=== PATIENT | female | born 1975 | race Two or more races ===

== ENCOUNTER 2024-10-17 17:44 | Inpatient (IN) | payer OTHER ==
[~2024-10-17] VITALS: Ht 172.7 cm; Wt 113.4 kg
--- NOTE | 2024-10-17 18:34 | NUR ---
PACIENTE ALERTA Y ORIENTADA X 3, REFIERE DESDE EL NO SIENTE EL LADO IZQ DEL CUERPO Y TIENE DIFICULTAD PARA HABLAR.
[2024-10-17] MEDS ORDERED: DIOVAN160 M1 PO (18:36)
[2024-10-17] MEDS ORDERED: METFORMIN HCL1000 M2 (18:36)
[2024-10-17] MEDS ORDERED: GLYXAMBI 25 MG1 EACH PO (18:37)
[2024-10-17] MEDS ORDERED: GUSELKUMAB SQ (18:38)
--- NOTE | 2024-10-17 19:18 | NUR ---
SE NOTIFICA CT.
[2024-10-17 20:14] LABS: BASO % 0.4 % (0.1-1.2); EOS # 0.08 (0.04-0.54); EOS % 1.0 % (0.7-7.0); LYMPH # 2.58 (1.18-3.74); LYMPH % 32.7 % (19.3-53.1); MEAN PLATELET VOLUME 9.60 fl (9.4-12.4); MONO # 0.48 (0.24-0.82); MONO % 6.1 % (4.7-12.5); NEUT # 4.69 (1.56-6.13); NEUT % 59.5 % (34.0-71.1); RED CELL DISTRIBUTION WIDTH 14.3 % (11.6-14.4)
[2024-10-17 20:44] LABS: COVID-19 AG NEGATIVE (NEGATIVE)
[2024-10-17 20:48] LABS: ALT/SGPT 25.0 U/L (12-78); AST/SGOT 17.0 U/L (15-37); BILIRUBIN TOTAL 0.63 mg/dL (0.3-1.2); BUN CREA RATIO 29.0 (7.0-25.0); CREATININE SERUM 0.7 mg/dL (0.55-1.02); GFR 88.57; GLOBULINA 3.4 G/DL (2.4-3.5); GLUCOSE FASTING 120.0 mg/dL (65-100); OSMOLALITY SERUM 285.0 MOSM/KG (275-295)
[2024-10-17 21:21] LABS: URINE APPEARANCE Clear; URINE BACTERIA 157.1 uL (0.0-1933); URINE BILIRRUBIN Negative (NEGATIVE); URINE BLOOD Small; URINE COLOR Yellow; URINE EPITHELIAL CELLS 10.7 uL (0.0-38.8); URINE KETONE Trace (NEGATIVE); URINE LEUKOCYTE Negative; URINE NITRATE Negative; URINE PROTEIN Negative (NEGATIVE); URINE RBC 7.3 uL (0.0-20.8); URINE UROBILINOGEN 0.2 E.U./dl; URINE WBC 4.1 uL (0.0-23.2)
[2024-10-17 21:25] LABS: URINE CAST 0.58 uL (0.0-1.40); URINE GLUCOSE >=1000 MG/DL (NEGATIVE)
[2024-10-17] MEDS ORDERED: 0.9 % SODIUM CHLORIDE 1,000 ML IV SCH (23:00)
[2024-10-17] MEDS ORDERED: ATORVASTATIN CALCIUM 40 MG TABLET PO SCH (23:08)
[2024-10-17] MEDS ORDERED: ACETAMINOPHEN 500 MG GEL..CAP PO PRN (23:15)
[2024-10-17] MEDS ORDERED: INSULIN LISPRO 1,000 UNIT/10 ML UNITS SUBCUTANEO PRN (23:15)
[2024-10-17] MEDS ORDERED: DEXTROSE 50 % IN WATER 0.5 G/ML DISP.SYRIN IV PRN (23:15)
[2024-10-17] MEDS ORDERED: ASPIRIN 81 MG TAB.CHEW PO ONE (23:15)
[2024-10-18 00:54] LABS: INR 1.05
[2024-10-18 01:01] VITALS: BP 150/80; O2SAT 98
[2024-10-18 01:06] LABS: CHOL HDL RATIO 3.5 (0-5.0); HDL 36.0 mg/dl (40-60); LDL 66.0 mg/dl (0-130); TSH 0.989 uIU/mL (0.358-3.74); VLDL 23.0 (0-39)
[2024-10-18] MEDS ORDERED: FAMOTIDINE/PF 20 MG in 0.9 % SODIUM CHLORIDE 8 ML IV PUSH SCH (09:00)
[2024-10-18] MEDS ORDERED: LOSARTAN POTASSIUM 50 MG TABLET PO SCH (09:00)
[2024-10-18] MEDS ORDERED: LORazepam 2 MG/ML VIAL IV NR (09:15)
[2024-10-18] MEDS ORDERED: METHYLPREDNISOLONE SOD SUCC 500 MG VIAL IV SCH (17:00)
[2024-10-18 17:30] VITALS: BP 157/82; O2SAT 98
[2024-10-19] VITALS (8 sets, daily range): BP systolic 165–188; BP diastolic 73–96; O2SAT 95–96
[2024-10-19] MEDS ORDERED: hydrALAZINE HCL 20 MG VIAL IV STA (01:21)
[2024-10-19] MEDS ORDERED: hydrALAZINE HCL 20 MG VIAL IV PRN (01:30)
[2024-10-19] MEDS ORDERED: SODIUM CHLORIDE 0.45 % 1,000 ML IV SCH (07:00)
[2024-10-19] MEDS ORDERED: INSULIN LISPRO 1,000 UNIT/10 ML UNITS SUBCUTANEO STA (08:12)
[2024-10-19] MEDS ORDERED: LOSARTAN POTASSIUM 100 MG TABLET PO SCH (09:00)
[2024-10-19] MEDS ORDERED: hydrALAZINE HCL 20 MG VIAL IV SCH (12:00)
[2024-10-19] MEDS ORDERED: INSULIN GLARGINE,HUM.REC.ANLOG 1,000 UNITS/10 ML UNITS SUBCUTANEO SCH (17:00)
[2024-10-19] MEDS ORDERED: METHYLPREDNISOLONE SOD SUCC 125 MG VIAL ONE (17:51)
[2024-10-19] MEDS ORDERED: PANTOPRAZOLE SODIUM 40 MG TABLET.DR PO SCH (21:00)
[2024-10-20] VITALS (8 sets, daily range): BP systolic 154–170; BP diastolic 63–82; O2SAT 94–97
[2024-10-20] MEDS ORDERED: INSULIN LISPRO 1,000 UNIT/10 ML UNITS SUBCUTANEO SCH (08:00)
[2024-10-20] MEDS ORDERED: ASPIRIN 81 MG TAB.CHEW PO NR (10:00)
[2024-10-20] MEDS ORDERED: CLOPIDOGREL BISULFATE 75 MG TABLET PO NR (10:00)
[2024-10-20] MEDS ORDERED: LORazepam 2 MG/ML VIAL IV STA (10:54)
[2024-10-20] MEDS ORDERED: POLYETHYLENE GLYCOL 3350 17 GM BLIST.PACK PO SCH (17:00)
[2024-10-20] MEDS ORDERED: METHYLPREDNISOLONE SOD SUCC 125 MG VIAL ONE (18:45)
[2024-10-21] VITALS (9 sets, daily range): BP systolic 120–164; BP diastolic 73–79; O2SAT 90–98
[2024-10-21] MEDS ORDERED: ASPIRIN 81 MG TAB.CHEW PO SCH (09:00)
[2024-10-21] MEDS ORDERED: CLOPIDOGREL BISULFATE 75 MG TABLET PO SCH (09:00)
[2024-10-21] MEDS ORDERED: DIPHENHYDRAMINE HCL 50 MG/ML VIAL 1ML IM STA (13:46)
[2024-10-21] MEDS ORDERED: METHYLPREDNISOLONE SOD SUCC 40 MG VIAL IV STA (13:46)
[2024-10-21] MEDS ORDERED: DIPHENHYDRAMINE HCL 50 MG/ML VIAL 1ML ONE (13:48)
[2024-10-21] MEDS ORDERED: METHYLPREDNISOLONE SOD SUCC 40 MG VIAL ONE (13:49)
[2024-10-21] MEDS ORDERED: PREDNISONE 20 MG TABLET PO SCH (17:00)
[2024-10-22] VITALS (10 sets, daily range): BP systolic 140–176; BP diastolic 73–80; O2SAT 92–96
[2024-10-22] MEDS ORDERED: LOSARTAN/HYDROCHLOROTHIAZIDE 1 TAB TABLET PO NR (13:40)
[2024-10-22] MEDS ORDERED: METOPROLOL SUCCINATE 50 MG TAB.SR.24H PO NR (13:40)
[2024-10-22] MEDS ORDERED: AMLODIPINE BESYLATE 5 MG TABLET PO SCH (17:00)
[2024-10-23] VITALS (8 sets, daily range): BP systolic 125–151; BP diastolic 70–78; O2SAT 93–97
[2024-10-23] MEDS ORDERED: METOPROLOL SUCCINATE 50 MG TAB.SR.24H PO SCH (09:00)
[2024-10-23] MEDS ORDERED: LOSARTAN/HYDROCHLOROTHIAZIDE 1 TAB TABLET PO SCH (09:00)
[2024-10-23 13:58] LABS: BASO % 0.1 % (0.1-1.2); EOS # 0.04 (0.04-0.54); EOS % 0.3 % (0.7-7.0); LYMPH # 1.48 (1.18-3.74); LYMPH % 9.8 % (19.3-53.1); MEAN PLATELET VOLUME 10.00 fl (9.4-12.4); MONO # 0.53 (0.24-0.82); MONO % 3.5 % (4.7-12.5); NEUT # 13.01 (1.56-6.13); NEUT % 85.8 % (34.0-71.1); RED CELL DISTRIBUTION WIDTH 14.5 % (11.6-14.4)
[2024-10-23 14:25] LABS: ALT/SGPT 37.0 U/L (12-78); AST/SGOT 20.0 U/L (15-37); BILIRUBIN TOTAL 1.03 mg/dL (0.3-1.2); BUN CREA RATIO 33.0 (7.0-25.0); CREATININE SERUM 0.69 mg/dL (0.55-1.02); GFR 90.05; GLOBULINA 3.1 G/DL (2.4-3.5); GLUCOSE FASTING 180.0 mg/dL (65-100); OSMOLALITY SERUM 286.0 MOSM/KG (275-295)
[2024-10-24] VITALS (8 sets, daily range): BP systolic 147–160; BP diastolic 81–86; O2SAT 95–98
[2024-10-24] MEDS ORDERED: INSULIN NPH HUM/REG INSULIN HM 1,000 UNIT/10 ML UNITS SUBCUTANEO SCH (08:00)
[2024-10-25 01:23] VITALS: O2SAT 90
[2024-10-25 01:36] VITALS: BP 160/80; O2SAT 97
[2024-10-25 05:34] VITALS: O2SAT 90
[2024-10-25] MEDS ORDERED: INSULIN NPH HUM/REG INSULIN HM 1,000 UNIT/10 ML UNITS SUBCUTANEO SCH ×2 (08:00→12:00)
[2024-10-25 08:23] VITALS: BP 170/70; O2SAT 96
[2024-10-25] MEDS ORDERED: AMLODIPINE BESYLATE 5 MG TABLET PO SCH (09:00)
[2024-10-25] MEDS ORDERED: METOPROLOL SUCCINATE 100 MG TAB.SR.24H PO SCH (09:00)
[2024-10-25 10:27] VITALS: O2SAT 97
[2024-10-25] MEDS ORDERED: CLOPIDOGREL BIS75 MG PO (10:46)
[2024-10-25] MEDS ORDERED: AMLODIPINE BESYL5 MG PO (10:47)
[2024-10-25] MEDS ORDERED: ADULT ASPIRIN81 MG PO (10:48)
[2024-10-25] MEDS ORDERED: TOPROL XL100 M1 PO (10:48)
[2024-10-25] MEDS ORDERED: LIPITOR40 M1 PO (10:48)
[2024-10-25] MEDS ORDERED: PANTOPRAZOLE SO40 MG PO (10:49)
[2024-10-25] MEDS ORDERED: PREDNISONE20 MG PO (10:50)
[2024-10-25] MEDS ORDERED: DIOVAN320 MG PO (10:51)
[2024-10-25] MEDS ORDERED: GLYXAMBI 25 MG1 EACH PO (10:52)
[2024-10-25 13:08] LABS: ANTI JO 1 < 0.2 AI (0.0-0.9); ANTI-CENTROMERE AB <0.2 AI (0.0-0.9); DNA AB DOUBLE STRABDED < 1 IU/mL (0-9)
[2024-10-25 15:08] LABS: ANTI CARDIO IGM < 9 MPL U/mL (0-12)
[2024-10-25 16:49] VITALS: BP 189/79; O2SAT 98
[2024-10-26 09:11] LABS: PROTEIN C ANTIGEN 93 % (60-150)
[2024-10-27 13:08] LABS: ANTI-THROMBIN III 116 % (75-135); VON WILLERBRAND ANTIGEN 167 % (50-200)
[2024-10-27 15:12] LABS: ANTI MITOCHONDRIAL ANTIBODIES < 20.0 Units (0.0-20.0); SMOOTH MUSCLE ANTIBODY 6 Units (0-19)
[2024-10-27 17:08] LABS: anti MPO AB < 0.2 units (0.0-0.9); anti pr3 < 0.2 units (0.0-0.9)
== END 2024-10-25 17:06 | disposition home or self-care (01) | DRG 65 ==
LOC: ER 17:44 → SEC-K 23:09 → SURH 23:09 → MEDJ 10-19 15:02 → MEDI 10-24 13:16
PROVIDERS: Emergency Medicine; General Practice; ADMIT Internal Medicine; ATTEND Internal Medicine
PROC: BW28ZZZ Computerized Tomography (CT Scan) of Head (ICD-10-PCS; 2024-10-17)
PROC: BW38YZZ Magnetic Resonance Imaging (MRI) of Head using Other Contrast (ICD-10-PCS; 2024-10-17)
PROC: BR30YZZ Magnetic Resonance Imaging (MRI) of Cervical Spine using Other Contrast (ICD-10-PCS; 2024-10-17)
PROC: BR30Y0Z Magnetic Resonance Imaging (MRI) of Cervical Spine using Other Contrast, Unenhanced and Enhanced (ICD-10-PCS; 2024-10-17)
PROC: B345ZZZ Ultrasonography of Bilateral Common Carotid Arteries (ICD-10-PCS; 2024-10-17)
PROC: B24BZZZ Ultrasonography of Heart with Aorta (ICD-10-PCS; 2024-10-17)
PROC: BR39YZZ Magnetic Resonance Imaging (MRI) of Lumbar Spine using Other Contrast (ICD-10-PCS; 2024-10-18)
PROC: 4A12X4Z Monitoring of Cardiac Electrical Activity, External Approach (ICD-10-PCS; principal; 2024-10-19)
PROC: B030ZZZ Magnetic Resonance Imaging (MRI) of Brain (ICD-10-PCS; 2024-10-19)
PROC: BR20ZZZ Computerized Tomography (CT Scan) of Cervical Spine (ICD-10-PCS; 2024-10-19)
PROC: BW28ZZZ Computerized Tomography (CT Scan) of Head (ICD-10-PCS; 2024-10-19)
PROC: BR29ZZZ Computerized Tomography (CT Scan) of Lumbar Spine (ICD-10-PCS; 2024-10-19)
PROC: BW2FYZZ Computerized Tomography (CT Scan) of Neck using Other Contrast (ICD-10-PCS; 2024-10-21)
PROC: BW28YZZ Computerized Tomography (CT Scan) of Head using Other Contrast (ICD-10-PCS; 2024-10-21)
DX: I63.89 Other cerebral infarction (principal); G37.9 Demyelinating disease of central nervous system, unspecified; I69.354 Hemiplegia and hemiparesis following cerebral infarction affecting left non-dominant side; I65.23 Occlusion and stenosis of bilateral carotid arteries; L40.50 Arthropathic psoriasis, unspecified; E11.65 Type 2 diabetes mellitus with hyperglycemia; Z79.4 Long term (current) use of insulin; G35 Multiple sclerosis; M47.812 Spondylosis without myelopathy or radiculopathy, cervical region; M47.816 Spondylosis without myelopathy or radiculopathy, lumbar region; I77.6 Arteritis, unspecified; L40.59 Other psoriatic arthropathy
CPT/HCPCS: 70496; 70498; 70546; 70549; 70553; 72149